=== PATIENT | male | born 1980 | race Native Hawaiian/Other Pacific Islander ===

== ENCOUNTER 2023-03-01 19:15 | Emergency (ER) | payer OTHER ==
[~2023-03-01] VITALS: Ht 175.3 cm; Wt 68.0 kg
[2023-03-01 23:35] VITALS: BP 95/67
== END 2023-03-01 23:35 | disposition home or self-care (01) ==
LOC: ED 19:15
PROC: 0RSJXZZ Reposition Right Shoulder Joint, External Approach (ICD-10-PCS; principal; 2023-03-01)
DX: S43.004A Unspecified dislocation of right shoulder joint, initial encounter (principal); X58.XXXA Exposure to other specified factors, initial encounter
CPT/HCPCS: 96374; 96375; 99284; J1170; J1885; J2405; J3490

== ENCOUNTER 2023-03-12 05:07 | Emergency (ER) | payer OTHER ==
[~2023-03-12] VITALS: Ht 175.3 cm; Wt 65.8 kg
[2023-03-12 06:55] VITALS: BP 151/91; TEMP 98.7
== END 2023-03-12 06:55 | disposition home or self-care (01) ==
LOC: ED 05:07
PROC: 0RSJ3ZZ Reposition Right Shoulder Joint, Percutaneous Approach (ICD-10-PCS; principal; 2023-03-12)
DX: S43.004A Unspecified dislocation of right shoulder joint, initial encounter (principal); X58.XXXA Exposure to other specified factors, initial encounter
CPT/HCPCS: 96374; 99285; J3490